=== PATIENT | female | born 1960 | race Hispanic/Latino ===

== ENCOUNTER 2017-08-27 08:00 | Outpatient (CLI) | payer BC | END 2017-08-27 08:01 | disposition home or self-care (01) | LOC: BICULT 08:00 | PROVIDERS: ATTEND Urology | DX: N28.1 Cyst of kidney, acquired (principal); D35.01 Benign neoplasm of right adrenal gland | CPT/HCPCS: 76770 ==

== ENCOUNTER 2019-04-28 13:38 | Outpatient (CLI) | payer BC ==
--- NOTE | 2019-04-28 14:33 | ULT ---
ULTRASOUND RETROPERITONEUM COMPLETE: (RENAL) DATE: 04/28/2019 HISTORY: Complex renal cyst in 58-year-old female. FINDINGS: Right kidney: 10 x 4.5 x 4.5 cm. Left kidney: 12.5 x 5.5 x 5.5 cm. Cystic lesion with at least one thin septation, and slightly irregular margins, at lower pole parench yma of left kidney. 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 Uncertain where superior edge is located. Uncertain whether or not lower pole calyx was included on the measurement of craniocaudal dimension. Despite complex appearance, this cyst was shown to be benign on prior CTs and MRIs with contrast. It does appear to be larger. No hydronephrosis bilaterally. Urinary bladder volume 240 mL. Normal wall thickness of bladder. 2 x 2 x 2.5 cm benign right adrenal nodule (demonstrated to be benign on prior MRIs and CTs). IMPRESSION: 1. Complex but benign left renal lower pole cyst has apparently grown slowly. 2. Benign right adrenal nodule.
== END 2019-04-28 13:39 | disposition home or self-care (01) ==
LOC: BICULT 13:38
PROVIDERS: ATTEND Urology
DX: N28.1 Cyst of kidney, acquired (principal); E27.8 Other specified disorders of adrenal gland
CPT/HCPCS: 76770; 81003; 81015

== ENCOUNTER 2019-05-19 12:58 | Outpatient (CLI) | payer BC ==
--- NOTE | 2019-05-19 15:53 | CT ---
CT ABDOMEN WITH AND WITHOUT IV CONTRAST: COMPARISON: 08/05/2015. FINDINGS: Dependent atelectasis is present at each lung base. Lung bases are otherwise clear. A 2.3 cm right adrenal lesion is present which demonstrates an attenuation coefficient compatible wit h an adrenal adenoma on the precontrast images. Left adrenal gland has a normal CT appearance. There is a stable hypodense cystic lesion at the inferior pole left kidney previously measuring 2.2 c m craniocaudal x 2 cm transverse x 1.8 cm AP with measurements on today's examination of 2.4 cm crani ocaudal x 2.4 cm transverse x 2 cm AP. Fluid attenuation is present on all phases of imaging without enhancement. Definitive septation within this lesion is difficult to delineate. There is a subcent imeter fluid attenuation cystic lesion mid portion right kidney demonstrating attenuation coefficient compatible with a cyst. The liver, spleen, pancreas, left adrenal gland, and abdominal aorta demonstrate a normal CT appearan ce. There are a few scattered colonic diverticula noted. Loops of small bowel are normal in caliber. No other interval change. IMPRESSION: 1. Interval enlargement of an inferior pole left renal cyst. 2. Mild interval enlargement of a small subcentimeter cyst mid portion right kidney. 3. Right adrenal adenoma. POS: [facility]
== END 2019-05-19 12:59 | disposition home or self-care (01) ==
LOC: BICCT 12:58
PROVIDERS: ATTEND Urology
DX: N28.1 Cyst of kidney, acquired (principal); D35.01 Benign neoplasm of right adrenal gland
CPT/HCPCS: 74170

== ENCOUNTER 2023-07-19 14:23 | Outpatient (CLI) | payer BC | END 2023-07-19 14:24 | disposition home or self-care (01) | LOC: BICULT 14:23 | PROVIDERS: ATTEND Urology | DX: N28.1 Cyst of kidney, acquired (principal) | CPT/HCPCS: 76770 ==

== ENCOUNTER 2024-02-07 11:01 | Outpatient (CLI) | payer BC | END 2024-02-07 11:02 | disposition home or self-care (01) | LOC: BICRAD 11:01 | PROVIDERS: ATTEND Internal Medicine | DX: R05.9 Cough, unspecified (principal) | CPT/HCPCS: 71046 ==

== ENCOUNTER 2024-05-18 10:38 | Outpatient (CLI) | payer BC | END 2024-05-18 10:39 | disposition home or self-care (01) | LOC: ULT 10:38 | PROVIDERS: ATTEND Internal Medicine | DX: R60.0 Localized edema (principal) | CPT/HCPCS: 93970 ==